=== PATIENT | female | born 1945 | race African-American/Black ===

== ENCOUNTER 2018-12-16 15:14 | Outpatient (CLI) | payer MEDICARE ==
--- NOTE | 2018-12-16 15:42 | RAD ---
Chest 2 views HISTORY: Chest pain. Feels like patient swallowed something. FINDINGS: Cardiac silhouette and pulmonary vasculature are unremarkable. Mediastinum is midline. No c onfluent airspace consolidation, pneumothorax, or pleural fluid. No radiopaque foreign bodies are visible over the thoracic esophagus. Prominent osteophytosis of the thoracic spine is evident. IMPRESSION: No active cardiopulmonary abnormalities are demonstrated.
== END 2018-12-16 15:15 | disposition home or self-care (01) ==
LOC: SCSRAD 15:14
PROVIDERS: ATTEND Family Medicine
DX: T18.198A Other foreign object in esophagus causing other injury, initial encounter (principal)
CPT/HCPCS: 71046